=== PATIENT | male | born 1985 | race Caucasian/White ===

== ENCOUNTER 2021-09-29 13:55 | Emergency (ER) | payer OTHER ==
[~2021-09-29] VITALS: Ht 182.9 cm; Wt 86.2 kg
[2021-09-29 13:58] VITALS: BP 127/76
== END 2021-09-29 15:11 | disposition home or self-care (01) ==
LOC: ER 13:55
DX: S01.01XA Laceration without foreign body of scalp, initial encounter (principal); Z90.89 Acquired absence of other organs; Z90.49 Acquired absence of other specified parts of digestive tract; Z98.890 Other specified postprocedural states; W22.09XA Striking against other stationary object, initial encounter; Y93.89 Activity, other specified; Y92.89 Other specified places as the place of occurrence of the external cause; Y99.8 Other external cause status